=== PATIENT | female | born 1975 | race Caucasian/White ===

== ENCOUNTER 2024-06-15 12:26 | Emergency (ER) | payer MEDICARE, SELFPAY ==
[2024-06-15] VITALS (24 sets, daily range): BP systolic 110–149; BP diastolic 69–98; PULSE 71–100; O2SAT 89–100; BMI 20.4
--- NOTE | 2024-06-15 12:44 | ECG_ITS ---
[facility] Test Date: 2024-06-15 Pat Name: ANNAMARIE VENCES Department: Room: - Gender: Female Director Of Category Management: : 1975 Requested By: Order Number: [id number] Reading MD: ALEJANDRO DUMONT Measurements Intervals [place] Rate: 85 P: 69 WY: 148 QRS: 63 QRSD: 84 T: 40 QT: 364 QTc: 406 Interpretive Statements 1100 Sinus rhythm 9110 normal ECG No previous ECG available for comparison Electronically Signed On 06-15-2024 18:30:34 EDT by ALEJANDRO DUMONT
--- NOTE | 2024-06-15 13:02 | CT_ITS ---
[address] [address] Patient Name: ANNAMARIE VENCES MRN: [id number] date: 1975 Sex: F Assigned Patient Location: ER Current Patient Location: ER Accession/Order Number: [id number] Exam Date: 06/15/2024 14:10 Report Date: 06/15/2024 15:12 At the request of: GERONIMO MURRIETA Procedure: CT abdomen pelvis w con CT ABDOMEN AND PELVIS WITH CONTRAST: INDICATION: Epigastric pain hx of tumor. COMPARISON: None. TECHNIQUE: Helical CT images of the abdomen and pelvis were obtained after the administration of intravenous contrast. Dose reduction techniques were achieved by using automated exposure control and/or adjustment of mA and/or kV according to patient size and/or use of iterative reconstruction technique. FINDINGS: LOWER CHEST: The visualized lung bases are clear. LIVER: There is a 7 mm hypodensity in the right hepatic lobe which likely represents a cyst. GALLBLADDER AND BILIARY SYSTEM: Status post cholecystectomy. There is no intra or extrahepatic biliary ductal dilatation. SPLEEN: Unremarkable. PANCREAS: Unremarkable. ADRENAL GLANDS: Unremarkable. KIDNEYS AND URETERS: The kidneys enhance symmetrically. There is no hydronephrosis. No focal renal lesions. BLADDER: Under distended with mild circumferential wall thickening. GASTROINTESTINAL TRACT: No evidence of bowel obstruction or colitis. Status post appendectomy. VASCULATURE: Unremarkable. RETROPERITONEUM AND LYMPH NODES: No lymphadenopathy or mass. PERITONEUM/MESENTERY: No abdominal ascites. No free air. PELVIS: There is a 3.3 x 2.6 cm left ovarian cyst. No pelvic ascites or lymphadenopathy. BODY WALL: Unremarkable. BONES: No acute abnormality. CT/CT abdomen pelvis w con IMPRESSION: 1. No acute process in the abdomen or pelvis. 2. Left ovarian cyst measuring 3.3 x 2.6 cm. Electronically authenticated by: BANDAR MANN Date: 06/15/2024 15:12
--- NOTE | 2024-06-15 13:03 | ED_ITS ---
HPI - Abdominal Pain General Chief Complaint: Abdominal Pain Stated Complaint: ABDOMINAL PAIN Time Seen by Provider: 06/15/24 12:30 Source: patient Mode of arrival: walk-in Limitations: no limitations History of Present Illness HPI narrative: Patient presents ED complaining of epigastric pain. 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 They took her gallbladder out at the same time. She has been fine ever since but started with some epigastric abdominal pain last night. She says she got very little sleep because she was in pain all night. She reports sludgy like stool but no profuse watery diarrhea. No constipation. Nausea but no vomiting. No fevers. Patient denies any chest pain. Patient reports that his epigastric pain and slightly left upper quadrant pain. No radiation into the back. Related Data Previous Rx's ?Medication ?Instructions ?Recorded famotidine 20 mg tablet (Pepcid) 20 mg PO DAILY #14 tabs 06/15/24 Allergies Allergy/AdvReac Type Severity Reaction Status Date / Time NSAIDS (Non-Steroidal Allergy Intermediate Abdominal Verified 06/15/24 12:36 Anti-Inflamma Pain Review of Systems ROS Status of ROS 10 or more systems reviewed and unremark able except as noted in history and below Exam Narrative Exam Narrative: Time Seen: [] Vital Signs: [Per nurse's notes.] General: [Alert] Skin: [Warm, dry, no rash.] Head: [Normocephalic, atraumatic.] Neck: [Supple, trachea midline.] Eye: [Pupils are equal, round and reactive to light, extraocular movements are intact, normal conjunctiva.] Ears, nose, mouth and throat: oral mucosa moist. Cardiovascular: [Regular rate and rhythm, no murmur.] Respiratory: [Lungs are clear to auscultation, respirations are non-labored, breath sounds are equal.] Chest wall: [No tenderness, no deformity.] Gastrointestinal: [Soft, Epigastric tenderness left upper quadrant tenderness moderate no rebound no guarding non distended, normal bowel sounds.] MSK: 5 out of 5 muscle strength x 4 extremities no calf pain or edema Lymphatics: [No lymphadenopathy.] Psychiatric: [Cooperative, appropriate mood & affect.] Neurological: [Alert and oriented to person, place, time, and situation, no focal neurological deficit observed.] Constitutional Vital Signs, click to edit/add: Last Vital Signs Pulse 79 06/15/24 15:39 Resp 15 06/15/24 15:39 BP 119/80 06/15/24 15:39 Pulse Ox 98 06/15/24 15:39 O2 Del Method Room Air 06/15/24 12:48 Course Vital Signs Vital signs: Vital Signs Pulse Rate 89 06/15/24 12:34 Respiratory Rate 18 06/15/24 12:34 Blood Pressure 149/86 H 06/15/24 12:34 Pulse Oximetry 100 06/15/24 12:34 Oxygen Delivery Method Room Air 06/15/24 12:34 Pulse Rate 79 06/15/24 15:39 Respiratory Rate 15 06/15/24 15:39 Blood Pressure 119/80 06/15/24 15:39 Pulse Oximetry 98 06/15/24 15:39 Oxygen Delivery Method Room Air 06/15/24 12:48 MDM - Abdominal Pain MDM Narrative Medical decision making narrative: Patient's labs are nonacute. Imaging shows a left-sided ovarian cyst which is not exactly where her pain is her pain is more epigastric. She does have a history of gastritis in the past and said this may feel similar. Patient will be started on antacids for the next 2 weeks to hopefully reduce her pain. She needs to follow-up with a [employer], regarding the ovarian cyst as well as a GI doctor regarding the possible gastritis and epigastric pain. She does not have an established GI doctor or [employer] so I gave her referrals for those doctors. Follow- up with family doctor if worsening or certainly return to ED if worsening symptoms. Patient is comfortable care plan for home. Vital signs stable. Differential Diagnosis Differential diagnosis: Likely abdominal pain, calculus of kidney, constipation, diverticulitis, pancreatitis and small bowel obstruction Medical Records Attestation: I reviewed the patient's medical records. Lab Data Attestation: I reviewed the patient's lab results. Labs: Lab Results 06/15/24 06/15/24 Range/Units 12:45 14:02 WBC 7.1 (4.0-11.0) 10^3/uL RBC 4.94 (4.20-5.40) 10^6/uL Hgb 14.1 (12.0-16.0) g/dL Hct 41.5 (36.0-48.0) % MCV 84.0 (81.0-99.0) fL MCH 28.5 (26.7-34.0) pg MCHC 34.0 (29.9-35.2) g/dL RDW 12.9 (11.0-15.0) % Plt Count 318 (150-450) 10^3/uL MPV 9.6 (9.5-13.5) fL Neut % (Auto) 58.1 (43.0-75.0) % Lymph % (Auto) 28.9 (20.5-60.0) % [place] % (Auto) 11.2 (1.7-12.0) % Eos % (Auto) 0.7 L (0.9-7.0) % Baso % (Auto) 0.7 (0.2-2.0) % Neut # (Auto) 4.2 (1.4-6.5) 10^3/uL Lymph # (Auto) 2.1 (1.2-3.8) 10^3/uL [place] # (Auto) 0.8 (0.3-0.8) 10^3/uL Eos # (Auto) 0.1 (0.0-0.7) 10^3/uL Baso # (Auto) 0.1 (0.0-0.1) 10^3/uL Abs Immat Gran (auto) 0.03 (0.00-0.03) 10^3/uL Imm/Tot Granulo (auto) 0.4 (0.0-0.5) % Sodium 138 (136-145) mmol/L Potassium 3.5 (3.5-5.1) mmol/L Chloride 103 (98-107) mmol/L Carbon Dioxide 28.0 (21.0-32.0) mmol/L Anion Gap 10.5 BUN 7.0 (7.0-18.0) mg/dL Creatinine 0.79 (0.55-1.02) mg/dL Est GFR ( Amer) >60 (>=60) Est GFR (Non-Af Amer) >60 (>=60) BUN/Creatinine Ratio 8.9 Glucose 99 (74-106) mg/dL Lactate 1.2 (0.4-2.0) mmol/L Calcium 8.9 (8.5-10.1) mg/dL Total Bilirubin 0.8 (0.2-1.0) mg/dL AST 12 L (15-37) U/L ALT 13 L (14-59) U/L Alkaline Phosphatase 46 (46-116) U/L Total Protein 7.2 (6.4-8.2) g/dL Albumin 4.0 (3.4-5.0) g/dL Globulin 3.2 g/dL Albumin/Globulin Ratio 1.3 Lipase 56.0 (16.0-77.0) U/L Urine Color Lt. yellow (YELLOW) Urine Clarity Clear (CLEAR) Urine pH 8.0 (5.0-9.0) Ur Specific [place] 1.010 (1.005-1.025) Urine Protein Negative (NEG/TRACE) mg/dL Urine Glucose (UA) Negative (NEGATIVE) mg/dL Urine Ketones Negative (NEGATIVE) mg/dL Urine Occult Blood Trace-i (NEGATIVE) Urine Nitrite Negative (NEGATIVE) Urine Bilirubin Negative (NEGATIVE) Urine Urobilinogen 0.2 (0.2-1.0) EU/dL Ur Leukocyte Esterase Negative (NEGATIVE) Urine RBC 0-2 (0-2) #/HPF Urine WBC None seen (NONE SEEN) #/HPF Ur Squamous Epith Cells Rare (NONE/RARE) #/LPF Urine Crystals None seen (None Seen) #/HPF Urine Bacteria Trace A (NONE SEEN) #/HPF Urine Casts None seen (NONE SEEN) #/LPF Urine Mucus Trace A (NONE SEEN) Ur Culture Indicated? No Imaging Data CT scan - abdomen: Radiologist's impression: ITS Impressions Abdomen/Pelvis CT 06/15/24 13:02 IMPRESSION: 1. No acute process in the abdomen or pelvis. 2. Left ovarian cyst measuring 3.3 x 2.6 cm. Electronically authenticated by: BANDAR MANN Date: 06/15/2024 15:12 ECG Data Attestation: I personally reviewed and interpreted this ECG as follows: Interpretation: EKG INTERPRETATION Time: []1244 Rate: []85 Rhythm: _ []Normal sinus rhythm ST segments: _ []No acute ST elevation or depression T waves: _ [] Ectopy: _ [] P wave/MN interval: _ [] QRS interval: _ [] QT interval: _ [] Comparison: _ [] Comparison EKG date: [] Performed by: [self] Discharge Plan Discharge Stand Alone Forms: Portal Instructions Chief Complaint: Abdominal Pain Clinical Impression: Gastroenteritis, Abdominal pain Patient Disposition: Home, Self-Care Time of Disposition Decision: 15:33 Mode of Transportation: Private Vehicle Prescriptions / Home Meds: New famotidine [Pepcid] 20 mg tablet 20 mg PO DAILY Qty: 14 0RF Print Language: Bhutanese Instructions: Gastroenteritis (ED) Referrals: KAYLEIGH OQUENDO [Physician] - 1 week Jonna Francis NP [Primary Care Provider] - 1 week Ena Mckeon MD [Physician] - 1 week Discharge Date/Time: 06/15/24 15:45
[2024-06-15] MEDS: ONDANSETRON PF 4 MG/2 ML VIAL IV (13:20)
[2024-06-15] MEDS: 0.9 % SODIUM CHLORIDE 1,000 ML 999 ML IV (13:20)
[2024-06-15 13:21] LABS: Basophils Absolute Auto 0.1 10^3/uL (0.0-0.1); Basophils Percent Auto 0.7 % (0.2-2.0); Eosinophils Absolute Auto 0.1 10^3/uL (0.0-0.7); Eosinophils Percent Auto 0.7 % (0.9-7.0); Hematocrit 41.5 % (36.0-48.0); Hemoglobin 14.1 g/dL (12.0-16.0); Immature Granulocytes Abs Auto 0.03 10^3/uL (0.00-0.03); Immature Granulocytes Pct Auto 0.4 % (0.0-0.5); Lymphocytes Absolute Auto 2.1 10^3/uL (1.2-3.8); Lymphocytes Percent Auto 28.9 % (20.5-60.0); Mean Corpuscular Hemoglobin 28.5 pg (26.7-34.0); Mean Platelet Volume 9.6 fL (9.5-13.5); Monocytes Absolute Auto 0.8 10^3/uL (0.3-0.8); Monocytes Percent Auto 11.2 % (1.7-12.0); Neutrophils Absolute Auto 4.2 10^3/uL (1.4-6.5); Neutrophils Percent Auto 58.1 % (43.0-75.0); Platelet Count 318 10^3/uL (150-450); Red Blood Count 4.94 10^6/uL (4.20-5.40); Red Cell Distribution Width 12.9 % (11.0-15.0); White Blood Count 7.1 10^3/uL (4.0-11.0)
[2024-06-15] MEDS: KETOROLAC TROMETHAMINE 30 MG/ML VIAL 15 MG IVP (13:21)
[2024-06-15 13:27] LABS: Alanine Aminotransferase 13 U/L (14-59); Albumin Globulin Ratio 1.3; Alkaline Phosphatase 46 U/L (46-116); Anion Gap 10.5; Aspartate Amino Transferase 12 U/L (15-37); BUN Creatinine Ratio 8.9; Bilirubin Total 0.8 mg/dL (0.2-1.0); Calcium 8.9 mg/dL (8.5-10.1); Chloride 103 mmol/L (98-107); Estimated GFR (African America >60 (>=60); Estimated GFR (Non-African Ame >60 (>=60); Globulin 3.2 g/dL; Glucose 99 mg/dL (74-106); Potassium 3.5 mmol/L (3.5-5.1); Sodium 138 mmol/L (136-145); Total Protein 7.2 g/dL (6.4-8.2)
[2024-06-15 13:29] LABS: Lactate/Lactic Acid 1.2 mmol/L (0.4-2.0)
[2024-06-15 14:22] LABS: Bilirubin Urine NEGATIVE (NEGATIVE); Blood Urine TRACE-I (NEGATIVE); Clarity Urine CLEAR (CLEAR); Color Urine LT. YELLOW (YELLOW); Glucose Urine UA NEGATIVE (NEGATIVE); Ketones Urine NEGATIVE (NEGATIVE); Leukocyte Esterase Urine NEGATIVE (NEGATIVE); Nitrite Urine NEGATIVE (NEGATIVE); Protein Urine NEGATIVE (NEG/TRACE); Urobilinogen Urine 0.2 EU/dL (0.2-1.0)
[2024-06-15 14:24] LABS: Urine Microscopic Indicated YES
[2024-06-15 14:48] LABS: Bacteria Urine TRACE #/HPF (NONE SEEN); RBC Urine 0-2 #/HPF (0-2); WBC Urine NONE SEEN #/HPF (NONE SEEN)
[2024-06-15 14:49] LABS: Cast Seen? NONE SEEN #/LPF (NONE SEEN); Crystals Seen? None Seen #/HPF (None Seen); Mucus Urine TRACE (NONE SEEN); Squamous Epithelial Cell Urine RARE #/LPF (NONE/RARE); Urine Culture Indicated NO
== END 2024-06-15 15:45 | disposition home or self-care (01) ==
PROVIDERS: Emergency Provider Emergency Medicine; PCP Nurse Practitioner Family
DX: K52.9 Noninfective gastroenteritis and colitis, unspecified (principal); R10.9 Unspecified abdominal pain; N83.202 Unspecified ovarian cyst, left side; Z90.49 Acquired absence of other specified parts of digestive tract
CPT/HCPCS: 36415; 74177; 80053; 81001; 83605; 83690; 85025; 93005; 96361; 96374; 96375; 99285; J1885; J2405; Q9967